=== PATIENT | male | born 1985 | race Caucasian/White ===

== ENCOUNTER 2020-01-30 01:27 | Emergency (ER) | payer SELFPAY ==
[2020-01-30 01:36] VITALS: BP 102/72; PULSE 98; RESP 16; TEMP 36.6; O2SAT 96; BMI 23.6
[2020-01-30 01:45] VITALS: BP 104/73; PULSE 92; RESP 16; O2SAT 95
--- NOTE | 2020-01-30 01:45 | ED_ITS ---
HPI - Neck Pain/Injury General: Chief Complaint: Neck Pain/Injury Stated Complaint: jaw injury Time Seen by Provider: 01/30/20 01:44 History of Present Illness: HPI Narrative: Patient is a 34-year-old male who comes to the ED with left shoulder pain. Past medical history of multiple jaw fractures. patient says that just prior to arrival he was walking down the stairs at [facility] and slipped and hit the left side of his face on the metal railing. Patient had loss of consciousness. Patient says when he woke up he had bleeding from his mouth and left jaw pain. Left jaw pain is rated a 7 out of 10. Denies any headache. Denies any nausea/vomiting, numbness or weakness to extremities, numbness or weakness to face. Associated symptoms: Denies headache(s) or nausea Review of Systems Const: Denies: fever(s), chills or fatigue Eyes: Denies: change in vision or eye discomfort ENMT: Reports: bleeding gums (Bleeding from mouth) and other (Left jaw pain); Denies: throat pain, odynophagia, nasal discharge or nasal congestion Card: Denies: chest pain, palpitations, edema, swelling of feet/ankles, dyspnea on exertion or orthopnea Resp: Denies: dyspnea, productive cough or non-productive cough GI: Denies: abdominal pain, nausea, vomiting, diarrhea, constipation or hematochezia : Denies: flank pain, difficulty urinating, dysuria or hematuria Musc: Denies: neck pain, back pain or extremity swelling Skin/Breast: Denies: rash or new lesions Neuro: Denies: headache(s), numbness in extremities or weakness in extremities Physical Exam Const: COMMON NORMALS: patient oriented x3 and alert GENERAL APPEARANCE: cooperative, comfortable and lethargic ORIENTATION/CONSCIOUSNESS: Yes lethargic HENMT: COMMON NORMALS: normocephalic HEAD & SCALP: normocephalic MOUTH: Normal oral and palatal mucosa present TEETH & GINGIVA: Yes abnormal tooth and associated gingiva lower left second molar tender and other (Bleeding) THROAT: posterior oropharynx normal and uvula midline Eye: COMMON NORMALS: Equal, round and reactive pupils present, EOMs intact bilaterally and normal visual jensen by confrontation PUPIL: Yes Equal, round and reactive pupils present Neck/C-Spine: COMMON NORMALS: supple GENERAL: Yes normal visual inspection Resp: COMMON NORMALS: normal respiratory effort, No retractions, No use of accessory muscles and clear to auscultation bilaterally AUSCULTATION: clear to auscultation bilaterally Cardio: COMMON NORMALS: regular rate, regular rhythm, S1 normal heart sound present, S2 normal heart sound present, No gallops present (Cardio), No clicks present (Cardio), No murmurs present (Cardio) and Peripheral pulses 2+ through out RATE: regular rate RHYTHM: regular rhythm HEART SOUNDS: S1 normal heart sound present and S2 normal heart sound present PERIPHERAL PULSES: Peripheral pulses 2+ throughout GI: COMMON NORMALS: Normal to inspection, nondistended, normoactive bowel sounds present, Soft to palpation, non-tender and no masses PALPATION: Yes Soft to palpation : COMMON NORMALS: Yes no CVA tenderness BLADDER/KIDNEY EXAM: Yes no CVA tenderness Back/Pelvis: COMMON NORMALS: no CVA tenderness Extremity: COMMON NORMALS: normal to inspection Neuro: HADLEY COMA SCALE: document GCS findings [place] coma scale eye opening: Spontaneous [place] coma scale verbal response: Orientated Hadley coma scale motor response: Obey commands Hadley coma scale total score: 15 COMMON NORMALS: patient oriented x3, CN's II-XII intact bilaterally, moves all extremities, no focal motor deficits, no sensory deficits noted and gait normal SENSORIUM/ORIENTATION: Yes alert and Yes lethargic COORDINATION/BALANCE: [id number] test normal SENSORY EXAM: Yes extremities (sensation intact) MOTOR EXAM: 5/5 motor strength present throughout COORDINATION: [id number] test normal Skin: GENERAL SKIN EXAM: dry skin Course Consultations: Consultation #1: I contacted [facility] for consultation for an oral surgeon. They put me in touch with Ne Ngo who is the physicians payroll assistant for [facility]. I talked with her about patient's case and CT findings. She gave me the [facility] office number and told me to have patient call in the morning to get set up for an appointment. She told me to make sure patient does not chew has a soft diet and put him on an antibiotic such as clindamycin. Time: 03:34 Vital Signs: Vital signs: Vital Signs Temperature 98 F 01/30/20 01:36 Pulse Rate 92 01/30/20 01:45 Respiratory Rate 16 01/30/20 01:45 Blood Pressure 104/73 01/30/20 01:45 Pulse Oximetry 95 01/30/20 01:45 MDM - Neck Pain/Injury MDM Narrative: Medical decision making narrative: Patient is a 34-year-old male who comes to the ED after having a fall and hitting the left side of his face. Patient reports loss of consciousness after fall. He has left jaw pain c urrently and bleeding from the inside of mouth back left mandible. Neuro exam was normal and showed no deficits. CT of head showed no acute findings. CT of cervical spine showed no acute findings. CT of the facial bones showed right parasymphyseal and left body mandible fractures. I contacted [facility] [place] for consultation and I spoke with the ED physicians payroll assistant Ne Ngo with [facility]. She provided me the contact number for her office and told me to have patient call first thing in the morning to get an appointment set up within the next couple days. She also told me to put patient on clindamycin and make sure he is on a soft liquid diet and does not chew. I provided patient with [facility] contact information and instructed him to call their office first thing in the morning. He was discharged with a prescription for hydrocodone and clindamycin. I instructed him not to chew and to eat a soft liquid diet. Return to ED precautions given. Patient understood and agreed with plan. Imaging Data^: CT Head: Attestation: I personally reviewed and interpreted this imaging study as follows: Radiologist's impression: [address] [place] [address] CT Scan Report Signed Patient: Cesar Reyna Unit #: [id number] : 1985 Age/Sex: 34 / M ADM Date: 01/30/20 Loc: ER Room/Bed: Attending Dr: Ordering Provider/Ordering MD: Phill Artis Date of Service: 01/30/20 Procedure(s): CT head wo con* [id number] Accession Number(s): [id number] Report Number: [id number] PROCEDURE INFORMATION: Exam: CT Head Without Contrast Exam date and time: 01/30/2020 1:45 AM Age: 34 years old Clinical indication: Injury or trauma; Initial encounter; Blunt trauma (contusions or hematomas); With loss of consciousness; Loss of consciousness for 30 minutes or less; Injury details: Fall with loc; Additional info: Head trauma with loc TECHNIQUE: Imaging protocol: Computed tomography of the head without contrast. Radiation optimization: All CT scans at this facility use at least one of these dose optimization techniques: automated exposure control; mA and/or kV adjustment per patient size (includes targeted exams where dose is matched to clinical indication); or iterative reconstruction. COMPARISON: No relevant prior studies available. RADIATION DOSE METRICS: Total DLP (mGy-cm): 842.22 FINDINGS: Brain: Normal. No hemorrhage. Unremarkable white matter. No mass effect. Ventricles: Normal. No ventriculomegaly. Bones/joints: Unremarkable. No acute fracture. Sinuses: Mild bilateral maxillary and ethmoid sinusitis is noted Mastoid air cells: Visualized mastoid air cells are well aerated. Soft tissues: Unremarkable. CT/CT head wo con* [id number] IMPRESSION: No acute intracranial abnormality. Mild sinusitis. Radiation Dose CTDIVOL = (mGy): DLP = 842.22 (mGy-cm) Dictated By: Bogdan Min MD Signed By: Bogdan Min MD Signed Date/Time: 01/30/20214 DD/ [address]: Attestation: I personally reviewed and interpreted this imaging study as follows: Radiologist's impression: [address] [address] [address] Scan Report Signed Patient: Cesar Reyna Unit #: [id number] : 1985 Age/Sex: 34 / M ADM Date: 01/30/20 Loc: ER Room/Bed: Attending Dr: Ordering Provider/Ordering MD: Phill Artis Date of Service: 01/30/20 Procedure(s): CT facial bones wo con* [id number] Accession Number(s): [id number] Report Number: [id number] PROCEDURE INFORMATION: Exam: CT Maxillofacial Without Contrast Exam date and time: 01/30/2020 1:45 AM Age: 34 years old Clinical indication: Injury or trauma; Initial encounter; Blunt trauma (contusions or hematomas); Left; Injury details: Fall with lt jaw pain; Prior surgery; Additional info: Head trauma with jaw pain TECHNIQUE: Imaging protocol: Computed tomography images of the face without contrast. Radiation optimization: All CT scans at this facility use at least one of these dose optimization techniques: automated exposure control; mA and/or kV adjustment per patient size (includes targeted exams where dose is matched to clinical indication); or iterative reconstruction. COMPARISON: No relevant prior studies available. RADIATION DOSE METRICS: Total DLP (mGy-cm): 856.56 FINDINGS: Orbits: Orbits are normal. Globes are unremarkable. Bones/joints: A sideplate and screws fixate a fracture of the left mandible body. Nondisplaced right parasymphyseal mandible fracture is also noted. Sinuses: Mild sinusitis is noted. Soft tissues: Mild soft tissue swelling and trace subcutaneous air are seen in the left submandibular region. CT/CT facial bones wo con* [id number] IMPRESSION: 1. Right parasymphyseal and left body mandible fractures, and recent internal fixation. 2. Mild sinusitis. Radiation Dose CTDIVOL = (mGy): DLP = 856.56 (mGy-cm) Dictated By: Bogdan Min MD Signed By: Bogdan Min MD Signed Date/Time: 01/30/20219 DD/ [address] [place] [address] CT Scan Report Signed Patient: Cesar Reyna Unit #: [id number] : 1985 Age/Sex: 34 / M ADM Date: 01/30/20 Loc: ER Room/Bed: Attending Dr: Ordering Provider/Ordering MD: Phill Artis Date of Service: 01/30/20 Procedure(s): CT cervical spin wo con* [id number] Accession Number(s): [id number] Report Number: [id number] PROCEDURE INFORMATION: Exam: CT Cervical Spine Without Contrast Exam date and time: 01/30/2020 1:45 AM Age: 34 years old Clinical indication: Injury or trauma; Fall; Initial encounter; Blunt trauma; Additional info: Fall with head trauma and loc TECHNIQUE: Imaging protocol: Computed tomography images of the cervical spine without contrast. Radiation optimization: All CT scans at this facility use at least one of these dose optimization techniques: automated exposure control; mA and/or kV adjustment per patient size (includes targeted exams where dose is matched to clinical indication); or iterative reconstruction. COMPARISON: No relevant prior studies available. RADIATION DOSE METRICS: Total DLP (mGy-cm): 612.2 FINDINGS: Vertebrae: No acute fracture. Normal alignment. Soft tissues: Unremarkable. CT/CT cervical spin wo con* [id number] IMPRESSION: No cervical spine fracture. Radiation Dose CTDIVOL = (mGy): DLP = 612.2 (mGy-cm) Dictated By: Bogdan Min MD Signed By: Bogdan Min MD Signed Date/Time: 01/30/20221 DD/ 9 Discharge Plan Discharge Patient Disposition: Home Clinical Impression: Bilateral open fracture of mandible Qualifiers: Encounter type: initial encounter Qualified Code(s): S02.609B - Fracture of mandible, unspecified, initial encounter for open fracture Condition: Stable Prescriptions: New clindamycin HCl 150 mg capsule 300 mg PO QID 7 Days Qty: 56 RF: 0 Discharge Orders: Discharge Order (Routine); Ordered 01/30/20 Ordered By: Phill Artis Discharge Diet: Soft Mechanical and Clear Liquid Patient Instructions: Jaw Fracture in Adults (ED) Activity Restrictions/Additional Instructions: Follow-up with medical provider as directed. Contact [facility] at the phone number [phone] to set up an appointment in the next couple days. No chewing. Soft and liquid diet. Take medications as prescribed. Return to the ER or your medical provider if condition worsens. Please read and understand discharge instructions. If any questions, please ask. Coding Level of Care Code ED Career Advisor for Chg Fwd Exam Comprehensive
[2020-01-30] MEDS: HYDROcodone-acetaminophen 7.5-325 mg Tablet 1 TAB PO (02:13)
[2020-01-30 03:52] VITALS: BP 115/63; PULSE 96; RESP 16; O2SAT 98
[2020-01-30] MEDS: clindamycin 150 mg Capsule 300 MG PO (03:53)
== END 2020-01-30 03:57 | disposition home or self-care (01) ==
PROVIDERS: Emergency Provider Physician Assistant
DX: S02.609B Fracture of mandible, unspecified, initial encounter for open fracture (principal); W01.198A Fall on same level from slipping, tripping and stumbling with subsequent striking against other object, initial encounter
CPT/HCPCS: 12345; 70450; 70486; 72125; 99281; 99283

== ENCOUNTER 2020-08-06 05:08 | Emergency (ER) | payer SELFPAY ==
[2020-08-06 05:15] VITALS: BP 117/87; PULSE 114; RESP 18; TEMP 36.7; O2SAT 93; BMI 25.8
--- NOTE | 2020-08-06 05:21 | ED_ITS ---
HPI - Skin/Abscess/Foreign Bdy General: Chief complaint: Skin/Abscess/Foreign Body Stated complaint: possible spider bite Time Seen by Provider: 08/06/20 05:19 Source: patient Mode of arrival: ambulatory Limitations: no limitations History of Present Illness: HPI narrative: 35-year-old male states he had an abscess to his left side of his face he noticed 2 to 3 days ago. States that increased swelling and slight drainage from the area. He states he also has pain he rates a 7 out of 10. He denies any worsening proving factors. Denies any difficulty swallowing or any tooth pain. He denies any fevers. Associated symptoms: Deny chills, fever(s), nausea or vomiting Review of Systems Const: Denies: fever(s), chills, body aches or change in appetite Eyes: Denies: blurry vision or eye discomfort ENMT: Denies: throat pain or dental pain Card: Denies: chest pain Resp: Denies: dyspnea GI: Denies: abdominal pain, nausea, vomiting or diarrhea : Denies: dysuria Musc: Denies: neck pain or back pain Skin/Breast: Denies: rash Neuro: Denies: headache(s) Psych: Denies: depression Devin/Lymph: Denies: easy bruising All/Imm: Denies: urticaria Physical Exam Const: COMMON NORMALS: no acute distress, patient oriented x3 and healthy appearing HENMT: COMMON NORMALS: normocephalic and atraumatic HEAD & SCALP: normocephalic and atraumatic Eye: COMMON NORMALS: Equal, round and reactive pupils present and EOMs intact bilaterally PUPIL: Yes Equal, round and reactive pupils present Neck/C-Spine: COMMON NORMALS: full ROM and supple Chest: COMMONS NORMALS: normal inspection of the chest and normal palpation of entire chest wall Resp: COMMON NORMALS: normal respiratory effort, No retractions, No use of accessory muscles and clear to auscultation bilaterally AUSCULTATION: clear to auscultation bilaterally Cardio: COMMON NORMALS: regular rate, regular rhythm and No murmurs present (Cardio) RATE: regular rate RHYTHM: regular rhythm GI: COMMON NORMALS: Normal to inspection, nondistended, normoactive bowel sounds present, Soft to palpation, non-tender and no masses PALPATION: Yes Soft to palpation Extremity: COMMON NORMALS: normal to inspection and full ROM Neuro: COMMON NORMALS: patient oriented x3, moves all extremities and no focal motor deficits Psych: COMMON NORMALS: mental status grossly normal, Normal thought process present and cooperative THOUGHT PROCESS: Normal thought process present Skin: COMMON NORMALS: no rashes or lesions noted and no wounds NARRATIVE SKIN EXAM: Abscess to left side of the face roughly 2 to 3 cm with some slight drainage no throat swelling and no dental abscess no trismus GENERAL SKIN EXAM: no rashes or lesions noted Procedures Abscess I/D Site: face Side (if applicable): left Local Anesthetic: lidocaine 1% Amount of anesthesia used (mL): 6 Technique: incised with #11 blade Irrigation: Yes Packing used?: none Course Vital Signs: Vital signs: Vital Signs Temperature 98.1 F 08/06/20 05:15 Pulse Rate 114 H 08/06/20 05:15 Respiratory Rate 18 08/06/20 05:15 Blood Pressure 117/87 08/06/20 05:15 Pulse Oximetry 93 08/06/20 05:15 MDM - Skin/Abscess/Foreign Bdy MDM Narrative: Medical decision making narrative: Patient presents with an abscess to his face. I incised and drained the abscess with no complications. We will place him on Bactrim. He is to follow-up his PCP in 2 to 4 days return to ER if he has any worsening. He understands and agrees to plan. Discharge Plan Discharge Patient Disposition: Home Clinical Impression: Abscess of skin or subcutaneous tissue Qualifiers: Site of cutaneous abscess: face Qualified Code(s): L02.01 - Cutaneous abscess of face Condition: Stable Prescriptions: New Bactrim DS 800-160 mg tablet 1 tab PO BID 10 Days Qty: 20 RF: 0 Discharge Orders: Discharge ED (Routine); Ordered 08/06/20 Ordered By: Flaquito Tellez Discharge Diet: Advance as tolerated Discharge Activity: Resume usual activity Patient Instructions: Abscess Incision and Drainage (ED), Abscess (ED) Coding Level of Care Code ED Hydrate Control Tender for Keara Fwmendy Exam Comprehensive
[2020-08-06] MEDS: HYDROcodone-acetaminophen 7.5-325 mg Tablet 1 TAB PO (05:26)
[2020-08-06 05:49] VITALS: BP 134/80; PULSE 105; RESP 14; TEMP 36.7; O2SAT 93
== END 2020-08-06 05:49 | disposition home or self-care (01) ==
PROVIDERS: Emergency Provider Emergency Medicine
DX: L02.01 Cutaneous abscess of face (principal)
CPT/HCPCS: 10060; 99283

== ENCOUNTER 2020-08-06 17:16 | Emergency (ER) | payer SELFPAY ==
[2020-08-06] VITALS (9 sets, daily range): BP systolic 105–134; BP diastolic 54–82; PULSE 96–118; RESP 14–18; TEMP 36.6; O2SAT 94–98; BMI 25.8
--- NOTE | 2020-08-06 17:36 | CTR_ITS ---
PROCEDURE INFORMATION: Exam: CT Neck With Contrast Exam date and time: 08/06/2020 5:40 PM Age: 35 years old Clinical indication: Mass, lump, or swelling in neck; Prior surgery; Surgery type: Facial recon; Patient HX: Lt sided facial swelling x 1 day; Additional info: Facial abscess TECHNIQUE: Imaging protocol: Computed tomography images of the neck with intravenous contrast. Radiation optimization: All CT scans at this facility use at least one of these dose optimization techniques: automated exposure control; mA and/or kV adjustment per patient size (includes targeted exams where dose is matched to clinical indication); or iterative reconstruction. Contrast material: OMNI 300; Contrast volume: 95 ml; Contrast route: INTRAVENOUS (IV); COMPARISON: CT cervical spin wo con* [id number] 01/30/2020 1:59 AM RADIATION DOSE METRICS: Total DLP (mGy-cm): 573.77 FINDINGS: Paranasal sinuses: Partial opacification of the maxillary sinuses. Nasopharynx: Unremarkable. Oropharynx: Unremarkable. No significant tonsillar enlargement. Hypopharynx: Unremarkable. Larynx: Unremarkable. Normal epiglottis. Retropharyngeal space: Unremarkable. Submandibular/Parotid glands: Normal. Glands are normal in size. Thyroid: Normal. No enlarged or calcified nodules. Lymph nodes: Scattered prominent lymph nodes throughout the neck measuring up to 10 mm, nonspecific. Trachea: Visualized trachea is unremarkable. Lungs: Unremarkable as visualized. Bones/joints: Unremarkable. No acute fracture. Soft tissues: Large amount of subcutaneous edema over the left mandible occult without definite focal fluid collection to indicate an abscess, although beam hardening from surgical hardware somewhat limits evaluation. Soft tissue swelling likely reflects a infectious process related to underlying periodontal disease seen in the mandible or maxilla. CT/CT neck w con* [id number] IMPRESSION: 1. Large amount of subcutaneous edema over the left mandible occult without definite focal fluid collection to indicate an abscess, although beam hardening from surgical hardware somewhat limits evaluation. Soft tissue swelling likely reflects a infectious process related to underlying periodontal disease seen in the mandible or maxilla. 2. Partial opacification of the maxillary sinuses. 3. Scattered prominent lymph nodes throughout the neck measuring up to 10 mm, nonspecific. Radiation Dose CTDIVOL = (mGy): DLP = 573.77 (mGy-cm)
--- NOTE | 2020-08-06 17:42 | W.ED.WOUNDLC ---
Documented by User: Camilo Childers DO 08/07/20 07:16 HPI - Wound/Laceration General: Chief Complaint: Wound/Laceration Stated Complaint: LESION ON FACE GETTING WORSE Time Seen by Provider: 08/06/20 17:26 History of Present Illness: HPI narrative: 35-year-old male presents to the emergency room with facial abscess. He was seen earlier today at around 5 AM 12 hours ago with a abscess on the left cheek it was incised and drained. He was given Bactrim. He returns now with massive facial swelling on the left side of his face he still able to breathe talk and swallow but he states feels like it is becoming difficult. He has not had any fever sweats or chills at home the wound that was incised and drained earlier today is still draining some serous fluid. Onset (ago): hour(s) Location: face Place: home Associated symptoms: Reports nausea, pain and other (Massive swelling left side of the face.); Denies chills or fever(s) Treatments prior to arrival: other (Previous incision and drainage approximately 12 hours ago) Review of Systems Const: Denies: fever(s), chills, body aches, change in appetite, fatigue or malaise ENMT: Denies: throat pain, ear or mastoid pain, nasal discharge or nasal congestion Card: Denies: chest pain, edema, dyspnea on exertion or orthopnea Resp: Denies: dyspnea, productive cough or non-productive cough GI: Reports: nausea : Denies: flank pain, dysuria, urinary frequency or urinary urgency Skin/Breast: Denies: rash or pruritus Physical Exam Const: COMMON NORMALS: no acute distress GENERAL APPEARANCE: cooperative and comfortable ORIENTATION/CONSCIOUSNESS: Yes awake, Yes oriented to person, Yes oriented to place and Yes oriented to time HENMT: COMMON NORMALS: normocephalic, atraumatic and hearing grossly normal bilaterally HEAD & SCALP: normocephalic and atraumatic Neck/C-Spine: COMMON NORMALS: no JVD Lymph: LYMPHATIC: no lymphadenopathy noted and no lymphedema noted Resp: COMMON NORMALS: normal respiratory effort, No retractions, No use of accessory muscles and clear to auscultation bilaterally AUSCULTATION: clear to auscultation bilaterally Cardio: COMMON NORMALS: no JVD, regular rate, regular rhythm and No murmurs present (Cardio) RATE: regular rate RHYTHM: regular rhythm GI: COMMON NORMALS: Soft to palpation and No hepatosplenomegaly present AUSCULTATION: Yes normoactive bowel sounds PALPATION: Yes Soft to palpation, No Tenderness to palpation present (GI), No Guarding due to palpation present (GI) and Yes No hepatosplenomegaly present Extremity: COMMON NORMALS: normal to inspection, capillary refill normal, no clubbing, cyanosis or edema, no calf tenderness and no pedal edema Neuro: SENSORIUM/ORIENTATION: Yes oriented to person, Yes oriented to place and Yes oriented to time Skin: NARRATIVE SKIN EXAM: Left-sided facial swelling and abscess extending into the submandibular space. There is an incision from previous incision and drainage this morning and still has serous drainage no purulent drainage Course Vital Signs: Vital signs: Vital Signs Temperature 97.8 F 08/06/20 22:42 Pulse Rate 98 08/06/20 22:42 Respiratory Rate 14 08/06/20 22:42 Blood Pressure 105/54 08/06/20 22:42 Pulse Oximetry 97 08/06/20 22:42 MDM - Wound/Laceration MDM Narrative: Medical decision making narrative: Severe facial swelling and cellulitis. CT of the neck is pending. Care turned over to Dr. Day. See his notes for final diagnosis and disposition. Lab Data: Labs: Lab Results 08/06/20 08/06/20 Range/Units 17:40 17:40 WBC 17.6 H (4.0-10.0) 10^3/ uL RBC 4.26 (4.1-5.3) 10^6/u L Hgb 13.1 (11.7-16.6) g/dL Hct 40.6 L (42.0-52.0) % MCV 95.3 H (80-94) fL MCH 30.8 (28.0-34.0) pg MCHC 32.3 (30.0-36.0) g/dL RDW 13.5 (12.1-15.1) % Plt Count 245 (130-400) 10^3/c mm MPV 9.8 (7.4-10.4) fL Neut % (Auto) 74.8 % Lymph % (Auto) 10.6 % [place] % (Auto) 12.3 % Eos % (Auto) 1.5 % Baso % (Auto) 0.4 % Neut # (Auto) 13.15 H (1.8-7.7) 10^3/u L Lymph # (Auto) 1.9 (0.8-4.8) 10^3/u L [place] # (Auto) 2.2 H (0.2-0.9) 10^3/u L Eos # (Auto) 0.3 (0.0-0.8) 10^3/u L Baso # (Auto) 0.1 (0.0-0.1) 10^3/u L Nucleated RBC % (a uto) 0 % Nucleated RBCs # 0.0 /100WBC Sodium 134 L (136-145) mmol/L Potassium 4.3 (3.5-5.1) mmol/L Chloride 97 L (98-107) mmol/L Carbon Dioxide 28 (22-29) mmol/L Anion Gap 13.3 (5-19) BUN 11 (6-20) mg/dL Creatinine 0.8 (0.7-1.2) mg/dL GFR Calculation 110.7 (90-130) mL/min Glucose 139 H (65-115) mg/dL Calculated Osmolal ity 280 L (285-295) mOsm/k g Calcium 9.0 (8.5-10.5) mg/dL Total Bilirubin 1.0 (0.15-1.2) mg/dL AST 142 H (0-40) U/L ALT 316 H (0-41) U/L Alkaline Phosphata se 149 H (40-130) IU/L Creatine Kinase 184 (39-308) U/L Total Protein 7.4 (6.6-8.7) g/dL Albumin 4.1 (3.5-5.2) g/dL Globulin 3.3 (1.3-4.6) g/dL Discharge Plan Discharge Patient Disposition: Xfer Other Clinical Impression: Cellulitis diffuse, face Coding Level of Care Code ED Contact Acid Plant Operator Helper for [facility] Fwd Exam Comprehensive Documented by User: Marty Day, 08/06/20 23:53 HPI - Wound/Laceration General: Chief Complaint: Wound/Laceration Stated Complaint: LESION ON FACE GETTING WORSE Time Seen by Provider: 08/06/20 17:26 Course Consultations: Consultation #1: Cecille Consultation #2: Zayda Couch Vital Signs: Vital signs: Vital Signs Temperature 97.8 F 08/06/20 22:42 Pulse Rate 98 08/06/20 22:42 Respiratory Rate 14 08/06/20 22:42 Blood Pressure 105/54 08/06/20 22:42 Pulse Oximetry 97 08/06/20 22:42 MDM - Wound/Laceration MDM Narrative: Medical decision making narrative: 35-year-old male checked out to me by Dr. Childers at shift change. This gentleman returns after having an abscess of his left cheek drained early this morning. He presented later in the day with increased facial swelling. He has a temperature. His white count is 17.6. He is tachycardic he is received Zosyn and vancomycin as well as Solu-Medrol 125 mg per his swelling has started to improve a bit. I called for admission to the hospital, but the concern is that we do not have ENT coverage here should the abscess recollect. I spoke with Dr. Couch at [facility], who is willing to admit. He will be transferred there by ambulance. Lab Data: Labs: Lab Results 08/06/20 08/06/20 Range/Units 17:40 17:40 WBC 17.6 H (4.0-10.0) 10^3/ uL RBC 4.26 (4.1-5.3) 10^6/u L Hgb 13.1 (11.7-16.6) g/dL Hct 40.6 L (42.0-52.0) % MCV 95.3 H (80-94) fL MCH 30.8 (28.0-34.0) pg MCHC 32.3 (30.0-36.0) g/dL RDW 13.5 (12.1-15.1) % Plt Count 245 (130-400) 10^3/c mm MPV 9.8 (7.4-10.4) fL Neut % (Auto) 74.8 % Lymph % (Auto) 10.6 % [place] % (Auto) 12.3 % Eos % (Auto) 1.5 % Baso % (Auto) 0.4 % Neut # (Auto) 13.15 H (1.8-7.7) 10^3/u L Lymph # (Auto) 1.9 (0.8-4.8) 10^3/u L [place] # (Auto) 2.2 H (0.2-0.9) 10^3/u L Eos # (Auto) 0.3 (0.0-0.8) 10^3/u L Baso # (Auto) 0.1 (0.0-0.1) 10^3/u L Nucleated RBC % (a uto) 0 % Nucleated RBCs # 0.0 /100WBC Sodium 134 L (136-145) mmol/L Potassium 4.3 (3.5-5.1) mmol/L Chloride 97 L (98-107) mmol/L Carbon Dioxide 28 (22-29) mmol/L Anion Gap 13.3 (5-19) BUN 11 (6-20) mg/dL Creatinine 0.8 (0.7-1.2) mg/dL GFR Calculation 110.7 (90-130) mL/min Glucose 139 H (65-115) mg/dL Calculated Osmolal ity 280 L (285-295) mOsm/k g Calcium 9.0 (8.5-10.5) mg/dL Total Bilirubin 1.0 (0.15-1.2) mg/dL AST 142 H (0-40) U/L ALT 316 H (0-41) U/L Alkaline Phosphata se 149 H (40-130) IU/L Creatine Kinase 184 (39-308) U/L Total Protein 7.4 (6.6-8.7) g/dL Albumin 4.1 (3.5-5.2) g/dL Globulin 3.3 (1.3-4.6) g/dL Discharge Plan Discharge Patient Disposition: Xfer Other Clinical Impression: Cellulitis diffuse, face Coding Level of Care Code ED Contact Acid Plant Operator Helper for [facility] Fwd Exam Comprehensive
[2020-08-06 17:49] LABS: Basophils # 0.1 10^3/uL (0.0-0.1); Basophils % 0.4 %; Eosinophils # 0.3 10^3/uL (0.0-0.8); Eosinophils % 1.5 %; Hematocrit 40.6 % (42.0-52.0); Hemoglobin 13.1 g/dL (11.7-16.6); Lymphocytes # 1.9 10^3/uL (0.8-4.8); Lymphocytes % 10.6 %; Mean Corpuscular HGB Conc 32.3 g/dL (30.0-36.0); Mean Corpuscular Hemoglobin 30.8 pg (28.0-34.0); Mean Corpuscular Volume 95.3 fL (80-94); Mean Platelet Volume 9.8 fL (7.4-10.4); Monocytes # 2.2 10^3/uL (0.2-0.9); Monocytes % 12.3 %; Neutrophils # 13.15 10^3/uL (1.8-7.7); Neutrophils % 74.8 %; Nucleated Red Blood Cells % 0 %; Platelet Count 245 10^3/cmm (130-400); Red Blood Count 4.26 10^6/uL (4.1-5.3); Red Cell Distribution Width 13.5 % (12.1-15.1); White Blood Count 17.6 10^3/uL (4.0-10.0)
[2020-08-06] MEDS: iohexol 300 mg/mL 100 mL Btl IV (17:51)
[2020-08-06] MEDS: morphine 4 mg/mL SDV 1 mL IVP ×2 (17:54→22:28)
[2020-08-06] MEDS: vancomycin 1,000 MG in sodium chloride 0.9% 250 ML 250 MG IV (17:54)
[2020-08-06] MEDS: ondansetron 2 mg/ML SDV 2 mL 4 MG IVP (17:54)
[2020-08-06 18:07] LABS: Alanine Aminotransferase 316 U/L (0-41); Albumin Level 4.1 g/dL (3.5-5.2); Alkaline Phosphatase 149 IU/L (40-130); Anion Gap 13.3 (5-19); Aspartate Amino Transferase 142 U/L (0-40); Blood Urea Nitrogen 11 mg/dL (6-20); Carbon Dioxide 28 mmol/L (22-29); Chloride 97 mmol/L (98-107); Creatine Phosphokinase 184 U/L (39-308); Creatinine Clr Calc Pharmacy 140.7054; Globulin 3.3 g/dL (1.3-4.6); Glomerular Filtration Rate 110.7 mL/min (90-130); Glucose 139 mg/dL (65-115); Osmolality Calculated 280 mOsm/kg (285-295); Potassium 4.3 mmol/L (3.5-5.1); Sodium 134 mmol/L (136-145); Total Protein 7.4 g/dL (6.6-8.7)
[2020-08-06] MEDS: piperacillin-tazobactam 3.375 GM in sodium chloride 0.9% (plus) 50 ML IV (18:51)
== END 2020-08-06 23:01 | disposition other institution (70) ==
PROVIDERS: Family Medicine; Emergency Provider Emergency Medicine
DX: L03.211 Cellulitis of face (principal)
CPT/HCPCS: 70491; 80053; 82550; 85025; 96365; 96367; 96375; 96376; 99285; J2270; J2405; J2543; J2930; J3370; J7050; Q9967

== ENCOUNTER 2020-12-01 21:18 | Emergency (ER) | payer SELFPAY ==
[2020-12-01 21:25] VITALS: BP 120/65; PULSE 139; RESP 15; TEMP 37.3; O2SAT 96; BMI 23.7
[2020-12-01 21:42] LABS: Basophils # 0.1 10^3/uL (0.0-0.1); Basophils % 0.4 %; Eosinophils # 0.1 10^3/uL (0.0-0.8); Eosinophils % 0.4 %; Hematocrit 38.2 % (42.0-52.0); Hemoglobin 12.1 g/dL (11.7-16.6); Lymphocytes # 3.9 10^3/uL (0.8-4.8); Lymphocytes % 23.5 %; Mean Corpuscular HGB Conc 31.7 g/dL (30.0-36.0); Mean Corpuscular Volume 94.6 fL (80-94); Mean Platelet Volume 11.3 fL (7.4-10.4); Monocytes # 1.7 10^3/uL (0.2-0.9); Monocytes % 10.1 %; Neutrophils # 10.91 10^3/uL (1.8-7.7); Neutrophils % 65.2 %; Nucleated Red Blood Cells % 0 %; Platelet Count 558 10^3/cmm (130-400); Red Blood Count 4.04 10^6/uL (4.1-5.3); Red Cell Distribution Width 13.3 % (12.1-15.1); White Blood Count 16.7 10^3/uL (4.0-10.0)
[2020-12-01] MEDS: sodium chloride 0.9% 1,000 ML 999 ML IV (21:44)
[2020-12-01] MEDS: naltrexone hcl 50 mg Tablet 25 MG PO (22:10)
[2020-12-01 22:15] VITALS: BP 108/69; PULSE 109; RESP 15; O2SAT 95
--- NOTE | 2020-12-01 22:25 | PC.NURSE ---
upon ED arrival, pt stating to attending MD that he wishes to leave. Pt able to answer A&O questions appropriatle. Refuses to answer questions regarding events, including amt and what was consumed. Pt not aware of how he was found. States OD was not intentional. Attending modifying order to 1L bolus rapid infusion and pt can leave AMA if he still chooses. After infusion, pt still requesting to leave AMA. Paperwork signed by house sup. IV removed. Pt able to ambulate from dept with no further difficulties or complaints
--- NOTE | 2020-12-01 22:38 | W.ED.OVERDOS ---
HPI - Overdose General: Chief Complaint: Overdose Stated Complaint: overdose Time Seen by Provider: 12/01/20 21:25 History of Present Illness: HPI Narrative: The patient is a 35-year-old male known opiate abuser per EMS who comes in found responsive to painful stimuli minimally and was given 0.4 Narcan. By his arrival he was alert and oriented x4 asking to leave. I asked him to stay for IV fluids and labs and he agreed to stay for IV fluids only. On reevaluation he told me he slipped up and uses drugs but would not specify which drug use. When I asked if it was heroin or fentanyl he again refused to answer but suggested that I was right in my guessing. He says he has been dealing with this for years and had multiple surgeries on his jaw which caused him chronic pain and he has been on methadone which was very difficult to get off of it now he has relapsed with opiates again. He says he feels fine and he has been going through this for many years with ER visits and overdosing. He denies suicidal ideations and says it was an accident. Review of Systems General: Reports: 10 or more systems reviewed and unremarkable except in HPI and below Const: Denies: fatigue Eyes: Denies: change in vision, blurry vision or eye redness ENMT: Denies: throat pain, swelling of lips/tongue, ear or mastoid pain or nasal congestion Card: Denies: chest pain, palpitations, irregular heart rhythm, edema, dyspnea on exertion or orthopnea Resp: Denies: dyspnea, productive cough or non-productive cough GI: Denies: abdominal pain, diarrhea or GI cramping : Denies: flank pain, urinary frequency or urinary urgency Musc: Denies: neck pain, back pain, extremity pain, joint pain, joint redness, limited range of motion or muscle weakness Skin/Breast: Denies: rash, pruritus, erythema, skin pain or skin tenderness Neuro: Denies: headache(s), numbness in extremities, weakness in extremities, sensory changes, difficulty walking, dizziness, confusion or Slurred speech present Psych: Denies: anxiety or depression Endo: Denies: polyuria All/Imm: Denies: urticaria, throat swelling or tongue swelling Physical Exam Const: COMMON NORMALS: no acute distress, average body habitus, patient oriented x3, no limitations, healthy appearing, alert and well nourished GENERAL APPEARANCE: cooperative, comfortable, well kempt and well developed ORIENTATION/CONSCIOUSNESS: Yes awake, Yes oriented to person, Yes oriented to place and Yes oriented to time HENMT: COMMON NORMALS: normocephalic, external ears normal and Normal external nose present HEAD & SCALP: normal to inspection and normocephalic NOSE: Normal external nose present EXTERNAL EAR: Yes external ears normal MOUTH: Normal oral and palatal mucosa present THROAT: posterior oropharynx normal Eye: COMMON NORMALS: Equal, round and reactive pupils present and EOMs intact bilaterally GENERAL EYE: appearance normal, both eyes and all related structures PUPIL: Yes Equal, round and reactive pupils present OTHER: Pupils slightly constricted. He did just receive 0.4 nasal Narcan. Neck/C-Spine: COMMON NORMALS: full ROM, no lymphadenopathy, no meningeal signs and no JVD GENERAL: Yes normal visual inspection Lymph: LYMPHATIC: no lymphadenopathy noted Chest: COMMONS NORMALS: normal inspection of the chest and normal palpation of entire chest wall Resp: COMMON NORMALS: normal respiratory effort, No retractions, No use of accessory muscles, clear to auscultation bilaterally and percussion normal EFFORT & INSPECTION: Yes able to speak in complete sentences AUSCULTATION: clear to auscultation bilaterally PERCUSSION: percussion normal Cardio: COMMON NORMALS: no JVD, regular rhythm, S1 normal heart sound present, S2 normal heart sound present and Peripheral pulses 2+ throughout RATE: tachycardic RHYTHM: regular rhythm HEART SOUNDS: S1 normal heart sound present and S2 normal heart sound present PERIPHERAL PULSES: Peripheral pulses 2+ throughout GI: COMMON NORMALS: Normal to inspection, nondistended, normoactive bowel sounds present, Soft to palpation, non-tender and no masses INSPECTION: Yes normal to inspection PALPATION: Yes Soft to palpation : COMMON NORMALS: Yes no CVA tenderness BLADDER/KIDNEY EXAM: Yes no CVA tenderness Back/Pelvis: COMMON NORMALS: no CVA tenderness, thoracic and lumbar spine normal to inspection, no thoracic nor lumbar tenderness and thoraco-lumbar ROM normal Extremity: COMMON NORMALS: normal to inspection, full ROM, capillary refill normal, no joint enlargement and no pedal edema GENERAL: Yes normal exam except as noted Neuro: COMMON NORMALS: patient oriented x3, CN's II-XII intact bilaterally, moves all extremities, no focal motor deficits, no sensory deficits noted and gait normal SENSORIUM/ORIENTATION: Yes alert, Yes oriented to person, Yes oriented to place and Yes oriented to time MENINGEAL SIGNS: Yes no meningeal signs Psych: COMMON NORMALS: mental status grossly normal, Normal thought process present, cooperative, normal affect and speech normal APPEARANCE: Yes well kempt ATTITUDE: Yes calm SPEECH: Yes normal speech THOUGHT PROCESS: Normal thought process present Skin: COMMON NORMALS: no rashes or lesions noted GENERAL SKIN EXAM: no rashes or lesions noted Course Vital Signs: Vital signs: Vital Signs Temperature 99.2 F 12/01/20 21:25 Pulse Rate 109 H 12/01/20 22:15 Respiratory Rate 15 12/01/20 22:15 Blood Pressure 108/69 12/01/20 22:15 Pulse Oximetry 95 12/01/20 22:15 MDM - Overdose MDM Narrative: Medical decision making narrative: Patient came to the ER after apparent accidental overdose of opiates. EMS gave him 0.4 nasal Narcan and he was alert and oriented on arrival. He refused all testing and only stayed for a liter of IV fluids. I discussed he would be leaving AGAINST MEDICAL ADVICE he said that is absolutely fine he wants to leave immediately. I convinced him to stay only for the IV fluids and after he signed AGAINST MEDICAL ADVICE and left on his own well. I discussed with him his condition could worsen in the Narcan could wear off making him pass out and . He understands and accepts that risk and signed AMA and left. Lab Data: Labs: Lab Results 12/01/20 Range/Units 21:23 WBC 16.7 H (4.0-10.0) 10^3/ uL RBC 4.04 L (4.1-5.3) 10^6/u L Hgb 12.1 (11.7-16.6) g/dL Hct 38.2 L (42.0-52.0) % MCV 94.6 H (80-94) fL MCH 30.0 (28.0-34.0) pg MCHC 31.7 (30.0-36.0) g/dL RDW 13.3 (12.1-15.1) % Plt Count 558 H (130-400) 10^3/c mm MPV 11.3 H (7.4-10.4) fL Neut % (Auto) 65.2 % Lymph % (Auto) 23.5 % [place] % (Auto) 10.1 % Eos % (Auto) 0.4 % Baso % (Auto) 0.4 % Neut # (Auto) 10.91 H (1.8-7.7) 10^3/u L Lymph # (Auto) 3.9 (0.8-4.8) 10^3/u L [place] # (Auto) 1.7 H (0.2-0.9) 10^3/u L Eos # (Auto) 0.1 (0.0-0.8) 10^3/u L Baso # (Auto) 0.1 (0.0-0.1) 10^3/u L Nucleated RBC % (a uto) 0 % Nucleated RBCs # 0.0 /100WBC Discharge Plan Discharge Patient Disposition: Left Against Medical Advice Clinical Impression: Drug overdose Coding Level of Care Code ED Certified Physical Therapist Assistant for Keara Hernandez
== END 2020-12-01 22:20 | disposition left against medical advice (07) ==
LOC: ER 21:34
PROVIDERS: Emergency Provider Family Medicine
DX: T65.91XA Toxic effect of unspecified substance, accidental (unintentional), initial encounter (principal); Z53.21 Procedure and treatment not carried out due to patient leaving prior to being seen by health care provider
CPT/HCPCS: 85025; 96360; 99283; J7030